=== PATIENT | female | born 1990 | race Caucasian/White ===

== ENCOUNTER 2016-09-01 13:56 | Emergency (ER) | payer MEDICAID ==
[2016-09-01 14:02] VITALS: TEMP 98
[2016-09-01 14:55] LABS: RBC URINE 4 /hpf (0-3); URINE BACTERIA OCC (<OCC); URINE BILIRUBIN NEGATIVE (NEGATIVE); URINE BLOOD NEGATIVE (NEGATIVE); URINE COLOR Yellow (YELLOW); URINE GLUCOSE (UA) NORMAL (Normal); URINE KETONE TRACE mg/dL (NEGATIVE); URINE LEUKOCYTE ESTERASE 2+ Leu/uL (Negative); URINE PROTEIN NEGATIVE (NEGATIVE); URINE UROBILINOGEN NORMAL mg/dL (0.2-1.0); WBC URINE 11 /hpf (0-5)
--- NOTE | 2016-09-01 16:20 | C.PDOC ---
History Of Present Illness 26 y/o female presents to the ED with complains of 2-3 days of feeling tired, dizzy and urinary frequency. Pt states symptoms are similar to when found out she was last year. Pt denies fever, abdominal pain, back pain, nausea, vomiting, diarrhea, rash or any other complaints. Denies travel. Time Seen by Provider: 09/01/16 14:17 Chief Complaint (Nursing): Female Genitourinary History Per: Patient History/Exam Limitations: no limitations Onset/Duration Of Symptoms: Days Current Symptoms Are (Timing): Still Present Severity: Mild Associated Symptoms: Urinary Symptoms. denies: Fever, Chills, Nausea, Vomiting , Diarrhea Alleviating Factors: None Recent travel outside of the [place]: No Abnormal Vaginal Bleeding: No Past Medical History Reviewed: Historical Data, Nursing Documentation, Vital Signs Vital Signs: Last Vital Signs Temp 98.0 F 09/01/16 13:59 Pulse 68 09/01/16 16:29 Resp 18 09/01/16 16:29 BP 128/75 09/01/16 16:29 Pulse Ox 98 09/01/16 16:29 - Medical History PMH: Hyperthyroidism Surgical History: Appendectomy Family History: States: Unknown Family Hx - Social History Hx Alcohol Use: No Hx Substance Use: No - Immunization History Hx Tetanus Toxoid Vaccination: No Hx Influenza Vaccination: No Hx Pneumococcal Vaccination: No Review Of Systems Except As Marked, All Systems Reviewed And Found Negative. Constitutional: Positive for: Other (tiredness). Negative for: Fever, Chills Gastrointestinal: Negative for: Nausea, Vomiting, Abdominal Pain, Diarrhea Genitourinary: Positive for: Frequency. Negative for: Vaginal Bleeding Musculoskeletal: Negative for: Back Pain Skin: Negative for: Rash Neurological: Positive for: Dizziness Physical Exam - Physical Exam Appears: Non-toxic, No Acute Distress Skin: Warm, Dry, No Rash Head: Atraumatic, Normacephalic Neck: Normal, Normal ROM, Supple Chest: Symmetrical Cardiovascular: Rhythm Regular, No Murmur Respiratory: Normal Breath Sounds, No Rales, No Rhonchi, No Wheezing Gastrointestinal/Abdominal: Normal Exam, Soft, No Tenderness Extremity: Normal ROM Extremity: Bilateral: Atraumatic Neurological/Psych: Oriented x3, Normal Speech ED Course And Treatment O2 Sat by Pulse Oximetry: 100 (room air) Pulse Ox Interpretation: Normal Medical Decision Making Medical Decision Making: Pt recently gave 2 months ago, no menses since. Plan: serum beta-HCG was negative. UA is (+) for UTI. On re-exam, the patient reports improvement of symptoms. Lungs are CTA, heart is RRR, abdomen is soft, non- tender and patient is tolerating PO well. Ambulatory in the ED with steady. Follow up with the OBGYN within 1-2 days. Return if worsened. Disposition - Disposition Referrals: Binta Hoyt MD [Staff Provider] - Disposition: HOME/ ROUTINE Disposition Time: 16:18 Condition: GOOD Additional Instructions: Follow up with the medical doctor within 1-2 days. Return if worsened. Prescriptions: Ciprofloxacin [Cipro] 1 tab PO BID #14 tab Phenazopyridine HCl [Pyridium] 200 mg PO TID #10 tablet Instructions: Urinary Tract Infection in Women (ED) - Clinical Impression Clinical Impression: UTI (urinary tract infection) - PA / [employer] / Resident Statement MD/DO has reviewed & agrees with the documentation as recorded. - Scribe Statement The provider has reviewed the documentation as recorded by the Steven Inman All medical record entries made by the Steven were at my direction and personally dictated by me. I have reviewed the chart and agree that the record accurately reflects my personal performance of the history, physical exam, medical decision making, and the department course for this patient. I have also personally directed, reviewed, and agree with the discharge instructions and disposition.
[2016-09-01 16:30] VITALS: BP 128/75; PULSE 68; RESP 18
[2016-09-01 23:44] VITALS: O2SAT 100
== END 2016-09-01 16:31 | disposition home or self-care (01) ==
LOC: C.ER 13:56
DX: N39.0 Urinary tract infection, site not specified (principal)

== ENCOUNTER 2017-03-11 14:28 | Emergency (ER) | payer MEDICAID ==
[2017-03-11 15:02] VITALS: BP 113/73; PULSE 78; RESP 18; TEMP 98.1; O2SAT 100
[2017-03-11 15:37] LABS: RBC URINE 24 /hpf (0-3); URINE BACTERIA RARE (<OCC); URINE BILIRUBIN NEGATIVE (NEGATIVE); URINE BLOOD 3+ (NEGATIVE); URINE COLOR Yellow (YELLOW); URINE GLUCOSE (UA) NORMAL (Normal); URINE KETONE TRACE mg/dL (NEGATIVE); URINE LEUKOCYTE ESTERASE TRACE Leu/uL (Negative); URINE PROTEIN NEGATIVE (NEGATIVE); URINE UROBILINOGEN NORMAL mg/dL (0.2-1.0); WBC URINE 6 /hpf (0-5)
--- NOTE | 2017-03-11 15:56 | C.PDOC ---
History Of Present Illness 26 yo female come in for evaluation of vaginal bleeding developed 5 days ago. Pt reports, had menstrual period 3 weeks ago " now developed bleeding again". Pt sts, " just want to make sure, Im not ". Otherwise, pt denies fever, chills, headache, dizziness, weakness, CP, SOB, dyspnea, back pain, UTI sx, Ambulate to Ed for evaluation, not in nay apparent distress. Time Seen by Provider: 03/11/17 15:03 Chief Complaint (Nursing): Abdominal Pain History Per: Patient Past Medical History Reviewed: Historical Data, Nursing Documentation, Vital Signs Vital Signs: Last Vital Signs Temp 98.1 F 03/11/17 14:56 Pulse 78 03/11/17 14:56 Resp 18 03/11/17 14:56 BP 113/73 03/11/17 14:56 Pulse Ox 100 03/11/17 14:56 - Medical History PMH: Hyperthyroidism Surgical History: Appendectomy Family History: States: Unknown Family Hx - Social History Hx Alcohol Use: No Hx Substance Use: No - Immunization History Hx Tetanus Toxoid Vaccination: No Hx Influenza Vaccination: No Hx Pneumococcal Vaccination: No Review Of Systems Except As Marked, All Systems Reviewed And Found Negative. Constitutional: Negative for: Fever, Chills ENT: Negative for: Throat Pain Cardiovascular: Negative for: Chest Pain, Palpitations Respiratory: Negative for: Shortness of Breath Gastrointestinal: Negative for: Vomiting, Abdominal Pain Genitourinary: Positive for: Vaginal Bleeding. Negative for: Dysuria, Frequency , Pelvic Pain Musculoskeletal: Negative for: Neck Pain, Back Pain Skin: Negative for: Rash Neurological: Negative for: Altered Mental Status, Dizziness Physical Exam - Physical Exam Appears: Well, Non-toxic, No Acute Distress Skin: Normal Color, Warm, Dry, No Rash Eye(s): bilateral: PERRL Nose: No Discharge Oral Mucosa: Moist Throat: No Erythema Neck: Trachea Midline, Supple Cardiovascular: Rhythm Regular, No Murmur, No JVD Respiratory: No Decreased Breath Sounds, No Accessory Muscle Use, No Stridor, No Wheezing Gastrointestinal/Abdominal: Soft, No Tenderness, No Distention, No Guarding Back: No CVA Tenderness Extremity: Normal ROM, No Deformity, No Swelling Neurological/Psych: Oriented x3, Normal Speech ED Course And Treatment - Laboratory Results Urine POC: Negative O2 Sat by Pulse Oximetry: 100 Pulse Ox Interpretation: Normal Progress Note: On re-evaluation, pt is afebrile, hemodynamicaly stable. non- toxic. Ambulatory in Ed with stable gait. Abd: benign, (-) guaridng, (-) rebound. Back: (-) CVA tenderness. UA results review- NORMAL, PREG (-). Pt has clinical findings c/w irregulat menstrual period. Pt advised and ref. to f/ u w ith PLAN NURSE in 2-3 days for re-eavl. return to ED if any worsening or new changes. Disposition Counseled Patient/Family Regarding: Studies Performed, Diagnosis, Need For Followup - Disposition [facility] Disposition: HOME/ ROUTINE Disposition Time: 15:10 Condition: STABLE Additional Instructions: IS NEGATIVE TODAY FOLLOW UP WITH PLAN NURSE IN 2-3 DAYS FOR RE-EVALUATION. RETURN TO ED IF ANY WORSENING OR NEW CHANGES. Instructions: Menstruation (ED) - Clinical Impression Clinical Impression: Menstrual periods irregular
== END 2017-03-11 16:05 | disposition home or self-care (01) ==
LOC: C.ER 14:28
DX: N92.6 Irregular menstruation, unspecified (principal)